=== PATIENT | male | born 2000 | race Two or more races ===

== ENCOUNTER 2025-10-21 03:01 | Emergency (ER) | payer MEDICAID ==
[~2025-10-21] VITALS: Ht 147.3 cm; Wt 48.2 kg
--- NOTE | 2025-10-21 03:31 | Physician Documentation ---
History of Present Illness ~ Chief Complaint: Cough Stated Complaint: COUGH Time Seen by MD: 03:11 HPI Patient presents to the emergency room with cough times one-week. No fevers. Symptoms seemed to be getting worse. No sick contacts. Medication Reconciliation Allergies: Coded Allergies: No Known Allergies (Unverified , 10/21/25) Review of Systems ROS All review of systems negative except as per HPI Physical Exam Vital Signs: Temperature: 98.9, Heart Rate: 80, Respiratory Rate: 18, BP: 122/75, Pulse Oximetry: 99, Weight: 48.180 Physical Exam General: Patient is awake, alert, oriented x4 in no acute distress Head: Normocephalic and atraumatic. Eyes: Conjunctival normal. EOMI. PERRL. ENT: Mucous membranes moist. Neck: Supple, trachea is midline. Chest: Diffuse rhonchi with some additional wheezing present.. There is no accessory muscle use or retractions. Cardiac: RRR without murmurs, gallops, or rubs. Progress Results/Orders Results/Orders Vital Signs 10/21/25 10/21/25 03:12 03:29 Temp 98.9 Pulse 80 Resp 16 18 B/P (MAP) 122/75 Pulse Ox 99 Medical Decision Making Additional information obtaine: N/A Findings Patient presents to the emergency room for evaluation of cough as per HPI. Differentials include but are not limited to pneumonia, viral syndrome, asthma, COPD, reflux. That has patient does have some wheezing and we will provide a inhaler along with antibiotics that has patient's symptoms are worsening. ER precautions discussed. Differential Dx:Considerations: Include: Allergic rhinitis, Influenza, Otitis media, Peritonsillar abscess, Pharyngitis-Diphtheria, Pharyngitis-Streptoccal, Pharyngitis-Viral, Pneumonia, Pnuemonitis, Sinusitis, URI, Other Departure Disposition: 01 HOME / SELF CARE / HOMELESS Impression: Primary Impression: Acute respiratory infection Condition: Stable Discharge Instructions: Upper Respiratory Infection, Adult Referrals: NO PRIMARY CARE PROVIDER (PCP) Prescriptions Benzonatate* (Benzonatate*) 100 Mg Capsule 1-2 CAP PO Q4H for cough, #30 CAP Prov: SHAN CEDEÑO MD 10/21/25 Prednisone* (Prednisone*) 20 Mg Tablet 1 TAB PO DAILY for 5 Days, #5 TAB Prov: SHAN CEDEÑO MD 10/21/25 Levofloxacin (Levofloxacin) 500 Mg Tablet 1 TAB PO DAILY for 7 Days, #7 TAB Prov: SHAN CEDEÑO MD 10/21/25 Albuterol Sulfate (Ventolin Hfa) 90 Mcg Hfa.aer.ad 2 PUFFS IH 5XD, #1 EACH Prov: SHAN CEDEÑO MD 10/21/25 Signature Scribe Signature: No scribe Attestation: The note accurately reflects work and decisions made by me.Shan Cedeño MD 10/21/25 03:37 SHAN CEDEÑO MD Oct 21, 2025 03:31
[2025-10-21] MEDS ORDERED: LEVO-65 PO (03:36)
[2025-10-21] MEDS ORDERED: ALBU18HF2 IH (03:36)
[2025-10-21] MEDS ORDERED: BENZ-38 PO (03:36)
[2025-10-21] MEDS ORDERED: PRED20TA PO (03:36)
[2025-10-21] MEDS: levoFLOXACIN 750MG TABLET PO ONE (03:42)
[2025-10-21] MEDS: ipratropium/albuterol 3ml nebule NEB ONE (03:44)
[2025-10-21 03:46] VITALS: PULSE 85; RESP 18; O2SAT 95
[2025-10-21 03:49] VITALS: PULSE 98; RESP 16; O2SAT 100
[2025-10-21 04:15] VITALS: BP 124/80; PULSE 80; RESP 16; TEMP 98.1; O2SAT 99
== END 2025-10-21 04:17 | disposition home or self-care (01) ==
LOC: ER 03:02
DX: J22 Unspecified acute lower respiratory infection (principal)
CPT/HCPCS: 94640; 94760; 99283